=== PATIENT | female | born 1960 | race Caucasian/White ===

== ENCOUNTER 2022-08-08 17:45 | Emergency (ER) | payer OTHER, MEDICAID, SELFPAY ==
[2022-08-08] VITALS (12 sets, daily range): BP systolic 138–194; BP diastolic 68–81; PULSE 96–113; RESP 15–29; TEMP 37; O2SAT 95–97; BMI 38.6
--- NOTE | 2022-08-08 18:09 | PC.NURSE ---
Pt reports small amounts of voiding urine.
--- NOTE | 2022-08-08 18:11 | ED.NAVMDI ---
HPI - Nausea/Vomiting/Diarrhea General Chief complaint: Nausea/Vomiting/Diarrhea Stated complaint: Vomiting, Hip pain Time Seen by Provider: 08/08/22 17:58 Source: patient Mode of arrival: Ambulatory History of Present Illness HPI Narrative: Patient is a 61-year-old female who is here for evaluation of 2 days of right-sided flank pain that has now moved down to her right hip. She denies any urinary symptoms. No change in bowel habits. Is having some vomiting. No fevers. No change bowel habits. Never had a kidney stone in the past. Has not tried anything for symptoms prior to arrival. Related Data Previous Rx's Medication Instructions Recorded hydrocodone 5 mg-acetaminophen 325 1 tab PO Q4-6H PRN pain #10 tabs 08/08/22 mg tablet ondansetron 4 mg disintegrating 4 mg PO Q6H PRN nausea and 08/08/22 tablet vomiting #10 tabs tamsulosin 0.4 mg capsule (Flomax) 0.4 mg PO DAILY #14 caps 08/08/22 Allergies Allergy/AdvReac Type Severity Reaction Status Date / Time azithromycin AdvReac Mild Verified 08/08/22 17:54 tetracycline AdvReac Mild Verified 08/08/22 17:54 Review of Systems Constitutional Constitutional: Reports system reviewed and no additional complaints, except as documented Gastrointestinal Gastrointestinal: Reports system reviewed and no additional complaints, except as documented Genitourinary Genitourinary: Reports system reviewed and no additional complaints, except as documented Musculoskeletal Musculoskeletal: Reports system reviewed and no additional complaints, except as documented Integumentary/Breasts Skin/Breast: Reports system reviewed and no additional complaints, except as documented Hematologic/Lymphatic On Anticoagulants: No Patient History Social History Smoking Status: Unknown if ever smoked Smoking Status: Unknown if ever smoked alcohol intake frequency: holidays/special occasions only Substance Use Type: does not use Exam Initial Vital Signs Initial Vital Signs: Vital Signs Temperature 98.6 F 08/08/22 17:47 Pulse Rate 113 H 08/08/22 17:47 Respiratory Rate 15 08/08/22 17:47 Blood Pressure 140/81 08/08/22 17:47 Pulse Oximetry 96 08/08/22 17:47 Oxygen Delivery Method Room Air 08/08/22 17:47 Const General: cooperative, comfortable and No ill appearing [place] Head: normal to inspection and normocephalic Resp Effort & Inspection: normal respiratory effort Cardio Rate: regular rate GI Inspection: normal to inspection and non-distended Palpation: soft Back/Spine/Pelvis Back: No CVA tenderness Skin General: no rashes or lesions noted Neuro General: patient alert, patient awake and moves all extremities Course Orders Ordered: ED Orders 08/08/22 18:12 CT kidney ureter bladder (KUB) Stat EKG-12 Lead Stat 08/08/22 20:10 Ictotest Urine Stat Urine Culture Stat Urine Microscopic Stat Discontinued Medications Hydrocodone Bitart/Acetaminophen (Hydrocodone/Acet 5/325 Tablet) 1 tab PO NOW ONE Stop: 08/08/22 19:58 Last Admin: 08/08/22 20:05 Dose: 1 tab Documented By: NIVIA Hydrocodone Bitart/Acetaminophen (Hydrocodone/Acet 5/325 Prepack) 1 bottle MISC SEEINSTR ONE Stop: 08/08/22 19:58 Last Admin: 08/08/22 20:06 Dose: 1 bottle Documented By: NIVIA Ondansetron HCl (Ondansetron 4 Mg Odt) 4 mg SL NOW ONE Stop: 08/08/22 19:58 Last Admin: 08/08/22 20:06 Dose: 4 mg Documented By: NIVIA Ondansetron HCl (Ondansetron 4 Mg Odt Prepack) 1 bottle MISC SEEINSTR ONE Stop: 08/08/22 19:58 Last Admin: 08/08/22 20:06 Dose: 1 bottle Documented By: NIVIA Tamsulosin HCl (Tamsulosin 0.4 Mg Capsule) 0.4 mg PO NOW ONE Stop: 08/08/22 19:47 Last Admin: 08/08/22 19:52 Dose: 0.4 mg Documented By: NIVIA Vital Signs Vital signs: Vital Signs - 8 hr 08/08/22 19:00 08/08/22 19:00 08/08/22 19:30 Pulse Rate 101 H 103 H Respiratory Rate 19 Blood Pressure 187/76 H Pulse Oximetry 97 97 08/08/22 19:31 08/08/22 19:31 08/08/22 20:00 Pulse Rate 98 H 97 H Respiratory Rate 15 Blood Pressure 194/70 H Pulse Oximetry 96 97 08/08/22 20:01 08/08/22 20:01 08/08/22 20:40 Pulse Rate 96 H 101 H Respiratory Rate 18 Blood Pressure 159/68 H Pulse Oximetry 97 96 08/08/22 20:41 08/08/22 20:41 Pulse Rate 100 H Respiratory Rate 19 Blood Pressure 150/74 H Pulse Oximetry 96 MDM - Nausea/Vomiting/Diarrhea Lab Data Attestation: I reviewed the patient's lab results. Labs: Lab Results 08/08/22 08/08/22 Range/Units 20:10 20:10 Ur Bilirubin Confirm Negative (Negative) Urine RBC 0-1/hpf (0-5/HPF) Urine WBC 5-10/hpf H (0-5/HPF) Ur Squamous Epith Cells 1-5 /hpf (0-5/HPF) Amorphous Sediment 2+ Urine Bacteria Moderate (10-30) H (None) Urine Mucus 1+ H (Negative) Ur Culture Indicated? Specimen cultured Urine Dip Bedside Urine Glucose Negative Bedside Urine Bilirubin + 1 Bedside Urine Ketone ++ 40 Urine Specific [place] 1.03 Bedside Urine Occult Blood +/- Bedside Urine pH 5.5 Bedside Urine Protein ++ 100 Bedside Urine Urobilinogen - Negative Bedside Urine Nitrite - Negative Bedside Urine Leukocytes - Negative Esterase Imaging Data CT scan - abdomen/pelvis: Radiologist's Impression: PROCEDURE:? CT KIDNEY URETER BLADDER (KUB) ? INDICATIONS:? R flank pain eval for stone ? TECHNIQUE:? Axial sections were acquired from the lung bases to the pubic symphysis.? Coronal and sagittal reformats were performed.? For radiation dose reduction, the following was used: ?automated exposure control, adjustment of mA and/or kV according to patient size.? ? COMPARISON:? None. ? FINDINGS:? ? Lung bases:? Unremarkable.? ? ? URINARY: Moderate right hydroureteronephrosis to the level of a 9 millimeter stone at the distal ureter.? Internal density of the stone is 982 Hounsfield units.? No left-sided urinary stone or hydroureteronephrosis. ABDOMEN: Liver:? Hypoattenuating compatible with steatosis. Gallbladder:? Unremarkable.? ? Biliary ducts:? Unremarkable.? ? Pancreas:? Unremarkable.? ? Spleen:? Unremarkable.? ? Adrenal Glands:? Unremarkable.? ? ? Stomach and Bowel:? No bowel obstruction.? Mild predominantly sigmoid colonic diverticulosis without evidence of acute diverticulitis. Peritoneum:? No free air or substantial free fluid. ? Abdominal Nodes:? No enlarged retroperitoneal or mesenteric lymph nodes.? Vessels:? Aorta and inferior vena cava are normal in size.? ? PELVIS: Pelvic Organs:? Unremarkable.? ? Pelvic Nodes: Unremarkable. ? Bones:? Multilevel degenerative change of the visualized spine. ? IMPRESSION:? ? 9 millimeter stone at the right distal ureter with moderate upstream hydroureteronephrosis. ? Hepatic steatosis. ECG Data Interpretation: Sinus tachycardia Ventricular rate 105 Normal [place] Normal QRS Normal QTC Nonspecific ST T wave changes MDM Narrative Medical decision making narrative: Patient does have a 9 mm right-sided ureteral stone. This very much explains the symptoms that she presents with today. She does have bacteria her urine but also has quite a few epi cells. We will wait for the urine culture before treating with any antibiotics. She is nontoxic. Patient refuses to have blood drawn. She understands the reason for the blood draw would be to check her kidney function. She understands that given the size of the stone that she potentially could have a kidney injury. She understands that would potentially put her into a different category where she would need more emergent urologic follow-up. Despite this she still refuses to have blood drawn. Will discharge patient home with pain medicine and nausea medicine. She is tolerating oral intake. She was also given information for follow-up with Urology. She was given return precautions. She expressed understanding and agreement. Discharge Plan Departure Patient Disposition: Home Clinical Impression: Renal colic on right side Instructions: DI for Kidney Stones Activity Restrictions/Additional Instructions: I do recommend that you take all of the medication as directed. I do recommend that you contact the urologist of the number provided below for follow-up. Return to the emergency department for new or worsening symptoms. Prescriptions: New tamsulosin [Flomax] 0.4 mg capsule 0.4 mg PO DAILY Qty: 14 0RF ondansetron 4 mg tablet,disintegrating 4 mg PO Q6H PRN (Reason: nausea and vomiting) Qty: 10 0RF hydrocodone-acetaminophen 5-325 mg tablet 1 tab PO Q4-6H PRN (Reason: pain) Qty: 10 0RF Referrals: Aleshia Rainey MD [Physician] - Miscellaneous,MD Mitchell [Primary Care Provider] - Stand Alone Forms: Patient Portal/API
--- NOTE | 2022-08-08 18:12 | DI.CT.S_ITS ---
PROCEDURE: CT KIDNEY URETER BLADDER (KUB) INDICATIONS: R flank pain eval for stone TECHNIQUE: Axial sections were acquired from the lung bases to the pubic symphysis. Coronal and sagittal reformats were performed. For radiation dose reduction, the following was used: automated exposure control, adjustment of mA and/or kV according to patient size. COMPARISON: None. FINDINGS: Lung bases: Unremarkable. URINARY: Moderate right hydroureteronephrosis to the level of a 9 millimeter stone at the distal ureter. Internal density of the stone is 982 Hounsfield units. No left-sided urinary stone or hydroureteronephrosis. ABDOMEN: Liver: Hypoattenuating compatible with steatosis. Gallbladder: Unremarkable. Biliary ducts: Unremarkable. Pancreas: Unremarkable. Spleen: Unremarkable. Adrenal Glands: Unremarkable. Stomach and Bowel: No bowel obstruction. Mild predominantly sigmoid colonic diverticulosis without evidence of acute diverticulitis. Peritoneum: No free air or substantial free fluid. Abdominal Nodes: No enlarged retroperitoneal or mesenteric lymph nodes. Vessels: Aorta and inferior vena cava are normal in size. PELVIS: Pelvic Organs: Unremarkable. Pelvic Nodes: Unremarkable. Bones: Multilevel degenerative change of the visualized spine. IMPRESSION: 9 millimeter stone at the right distal ureter with moderate upstream hydroureteronephrosis. Hepatic steatosis. Dictated by: Tez Street M.D. on 08/08/2022 at 19:02 Approved by: Tez Street M.D. on 08/08/2022 at 19:09
--- NOTE | 2022-08-08 18:14 | PC.NURSE ---
Pt declined IV or lab draw. Provider aware.
[2022-08-08] MEDS: TAMSULOSIN 0.4 MG CAPSULE PO (19:52)
[2022-08-08] MEDS: HYDROCODONE/ACET 5/325 TABLET 1 TAB PO (20:05)
[2022-08-08] MEDS: ONDANSETRON 4 MG ODT PREPACK 1 BOTTLE MISC (20:06)
[2022-08-08] MEDS: HYDROCODONE/ACET 5/325 PREPACK 1 BOTTLE MISC (20:06)
[2022-08-08] MEDS: ONDANSETRON 4 MG ODT SL (20:06)
[2022-08-08 20:47] LABS: Ictotest Urine Negative (Negative)
[2022-08-08 20:52] LABS: Amorphous Sediment Urine 2+; Bacteria Urine Moderate (10-30); Culture Indicated Urine Specimen Cultured; Mucus Urine 1+ (Negative); RBC Urine 0-1/HPF (0-5/HPF); Squamous Epithelial Cell Urine 1-5 /HPF (0-5/HPF); WBC Urine 5-10/HPF (0-5/HPF)
== END 2022-08-08 21:00 | disposition home or self-care (01) ==
PROVIDERS: Emergency Provider Emergency Medicine
DX: R10.9 Unspecified abdominal pain (principal); R11.10 Vomiting, unspecified; R03.0 Elevated blood-pressure reading, without diagnosis of hypertension
CPT/HCPCS: 74176; 81003; 81015; 87086; 93005; 93010; 99283; 99284